=== PATIENT | female | born 1985 ===

== ENCOUNTER 2018-06-29 08:49 | Outpatient (CLI) | payer OTHER | END 2018-06-29 09:07 | disposition home or self-care (01) | LOC: NUCLEAR 08:49 | DX: G90.09 Other idiopathic peripheral autonomic neuropathy (principal); I73.9 Peripheral vascular disease, unspecified; I87.2 Venous insufficiency (chronic) (peripheral); I10 Essential (primary) hypertension; Z01.810 Encounter for preprocedural cardiovascular examination; E78.89 Other lipoprotein metabolism disorders; E11.9 Type 2 diabetes mellitus without complications; E66.8 Other obesity; M89.9 Disorder of bone, unspecified ==

== ENCOUNTER 2018-08-01 15:13 | Emergency (ER) | payer OTHER ==
[~2018-08-01] VITALS: Ht 175.3 cm; Wt 157.4 kg
== END 2018-08-01 18:08 | disposition home or self-care (01) ==
LOC: ER 15:13
DX: L02.413 Cutaneous abscess of right upper limb (principal)